=== PATIENT | male | born 1980 | race Caucasian/White ===

== ENCOUNTER 2022-12-18 02:00 | Emergency (ER) | payer SELFPAY ==
[~2022-12-18] VITALS: Ht 180.3 cm; Wt 122.5 kg
[2022-12-18 02:20] VITALS: O2SAT 98
[2022-12-18] MEDS ORDERED: LIDOCAINE 2%-EPI 1:100,000 20 ML VIAL TP ONE (02:30)
[2022-12-18] MEDS ORDERED: ACET1TAB23 PO (03:16)
[2022-12-18] MEDS ORDERED: SULF1TAB48 PO (03:16)
[2022-12-18] MEDS ORDERED: SULFAMETH/TRIMETH 800/160 MG TABLET ONE (03:22)
[2022-12-18] MEDS ORDERED: LIDOCAINE 2%-EPI 1:100,000 20 ML VIAL ONE (03:26)
[2022-12-18] MEDS ORDERED: SULFAMETH/TRIMETH 800/160 MG TABLET PO ONE (03:30)
== END 2022-12-18 03:29 | disposition home or self-care (01) ==
LOC: ER 02:37
DX: L02.415 Cutaneous abscess of right lower limb (principal); I10 Essential (primary) hypertension; Z79.899 Other long term (current) drug therapy
CPT/HCPCS: A4606; A4663